=== PATIENT | male | born 1965 | race Caucasian/White ===

== ENCOUNTER → 2016-10-30 | Outpatient (CLI) | payer OTHER ==
[~2016-10-30] VITALS: Ht 188 cm; Wt 71.2 kg
[~2016-10-30] MED LIST: LACTATED RINGER'S 1000 ML INJ 1,000 ML ONE; MULTTAB67 PO; PROPOFOL 200 MG/20 ML AMP IV ONE; VITA10002 PO; ZOLO50TA PO
[2016-10-30 09:25] VITALS: BP 143/91; PULSE 89; RESP 20; TEMP 98.2; O2SAT 95
[2016-10-30 11:35] VITALS: TEMP 97.6
--- NOTE | 2016-10-30 11:42 | GIPROC ---
[facility] [address] [facility]. [facility] [place], [address] COLONOSCOPY PROCEDURE REPORT EXAM DATE: 10/30/2016 PATIENT NAME: Aldo Jain MR #: [id number] BIRTHDATE: 1965 ENDOSCOPIST: Poli Salazar MD ORDER #: [id number] BOARD OF EDUCATION SECRETARY: Daniel Shi and Basia Travis STATUS: outpatient INDICATIONS: The patient is a 50 yr old male here for a colonoscopy due to average risk patient for colon cancer PROCEDURE PERFORMED: Colonoscopy with polypectomy MEDICATIONS: None and Per Anesthesia. PREP QUALITY: good PREP TYPE:GoLytely ESTIMATED BLOOD LOSS: None CONSENT: The patient understands the risks and benefits of the procedure and understands that these risks include, but are not limited to: sedation, allergic reaction, infection, perforation and/or bleeding. Alternative means of evaluation and treatment include, among others: physical exam, x-rays, and/or surgical intervention. The patient elects to proceed with this endoscopic procedure. medical equipment was checked for proper function. Hand hygiene and appropriate measures for infection prevention was taken. After the risks, benefits and alternatives of the procedure were thoroughly explained, Informed consent was verified, confirmed and timeout was successfully executed by the treatment team. A digital exam was performed The Pentax [id number] endoscope was introduced through the anus and advanced to the cecum, which was identified by both the appendix and ileocecal valve. The instrument was then slowly withdrawn as the colon was fully examined. COLON FINDINGS: Mild diverticulosis was noted in the sigmoid colon. A pedunculated polyp measuring 7 mm in size was found in the rectosigmoid colon. A polypectomy was performed using snare cautery. The resection was complete and the polyp tissue was completely retrieved. The colon mucosa was otherwise normal. Retroflexion was performed and was normal The scope was then completely withdrawn from the patient and the procedure terminated. PROCEDURE WITHDRAWAL TIME:11minutes ADVERSE EVENTS: There were no complications. IMPRESSIONS: 1. Mild diverticulosis was noted in the sigmoid colon 2. A pedunculated polyp was found in the rectosigmoid colon; polypectomy was performed using snare cautery 3. The colon mucosa was otherwise normal 4. Retroflexion was performed and was normal 5. Was performed RECOMMENDATIONS: 1. Await biopsy results. Biopsy results will not be ready for 7-10 days. If you don't hear from us in two weeks, call our office for results. 2. High fiber diet RECALL: Return 5 years Colonoscopy Poli Salazar MD eSigned: Poli Salazar MD 10/30/2016 11:41 AM cc: Nikolas Tamez M.D. PATIENT NAME: Aldo Jain MR#: [id number]
[2016-10-30 11:55] VITALS: BP 127/88; PULSE 83; RESP 18; O2SAT 100
--- NOTE | 2016-10-30 19:19 | EKG ---
Date Performed: 10/30/2016 Time Performed: 09:48:15 PTAGE: 50 years EKG: Sinus rhythm NORMAL ECG NO PREVIOUS TRACING DOCTOR: Albaro Tapia Interpretating Date/Time 10/30/2016 19:18:43
== END ==
LOC: HEND 08:43
PROVIDERS: ATTEND Internal Medicine Gastroenterology
DX: Z12.11 Encounter for screening for malignant neoplasm of colon (principal); K57.90 Diverticulosis of intestine, part unspecified, without perforation or abscess without bleeding; D12.5 Benign neoplasm of sigmoid colon; Z01.810 Encounter for preprocedural cardiovascular examination
CPT/HCPCS: 00810; 45385; 88305; 93005; J7120

== ENCOUNTER → 2017-02-26 | Outpatient (CLI) | payer OTHER ==
[~2017-02-26] MED LIST changes: -LACTATED RINGER'S 1000 ML INJ 1,000 ML ONE; -PROPOFOL 200 MG/20 ML AMP IV ONE
[2017-02-26 15:01] LABS: HEMATOCRIT 42.6 % (39.0-51.0); MEAN CELL VOLUME 98.3 FL (80.0-100.0); MEAN CORPUSCULAR HEMOGLOBIN 34.8 PG (27.0-34.0); MEAN CORPUSCULAR HGB CONC 35.5 % (32.0-36.0); PLATELET COUNT 167 TH/MM3 (150-450); RED BLOOD COUNT 4.34 MIL/MM3 (4.50-5.90); RED CELL DISTRIBUTION WIDTH 12.8 % (11.6-17.2); REVIEW FLAG FINAL; WHITE BLOOD COUNT 6.7 TH/MM3 (4.0-11.0)
== END ==
LOC: CLAB 14:38
PROVIDERS: ATTEND Family Medicine
DX: R53.83 Other fatigue (principal)
CPT/HCPCS: 36415; 82607; 82746; 84403; 84443; 85027